=== PATIENT | male | born 1990 | race African-American/Black ===

== ENCOUNTER 2023-09-09 17:14 | Emergency (ER) | payer MEDICAID ==
[~2023-09-09] VITALS: Ht 172.7 cm; Wt 78.0 kg
[2023-09-09 17:19] VITALS: O2SAT 99
[2023-09-09] MEDS ORDERED: BACITRACIN ZINC OINT UDPKT TOP ONE (17:30)
[2023-09-09] MEDS ORDERED: TETANUS, DIPHTHERIA, PERTUSSIS VAC/PF 0.5ML (>10YR OLD) IM ONE (17:30)
[2023-09-09] MEDS ORDERED: LIDOCAINE HCL/EPINEPHRINE 1%-EPI 1:100,000 20 ML VIAL INFIL ONE (17:30)
[2023-09-09] MEDS ORDERED: ACETAMINOPHEN 325MG TABLET PO ONE (17:30)
[2023-09-09] MEDS ORDERED: LIDOCAINE HCL/PF 1% 10 MG/ML 5ML VIAL INFIL ONE (17:30)
[2023-09-09 17:54] VITALS: TEMP 98.1
[2023-09-09 17:57] LABS: BASOPHILS % 0.5 % (0.0-2.0); EOSINOPHILS % 0.5 % (0.0-5.0); HEMATOCRIT. 50.5 % (42.0-52.0); HEMOGLOBIN. 17.3 g/dL (14.0-18.0); LYMPHOCYTES % 11.1 % (20.0-50.0); MEAN CORPUSCULAR HGB CONC 34.3 g/dL (31.0-37.0); MEAN CORPUSCULAR VOLUME 93.3 fL (80.0-94.0); MEAN PLATELET VOLUME 7.6 fl (7.4-10.4); NEUTROPHILS % 80.9 % (40.0-76.0); PLATELET 252 x1000/uL (130-400); RED BLOOD CELL COUNT 5.42 mill/uL (4.7-6.1); RED CELL DISTRIBUTION WIDTH 13.4 % (11.6-14.6); WHITE BLOOD COUNT 8.7 x1000/uL (4.5-11.0)
[2023-09-09 18:15] LABS: ALANINE AMINOTRANSFERASE 14 IU/L (10-49); ALBUMIN 5.1 g/dL (3.2-4.8); ASPARTATE AMINOTRANSFERASE 21 IU/L (<34); BILIRUBIN TOTAL 0.5 mg/dL (0.1-1.0); CALCIUM 10.2 mg/dL (8.7-10.4); CARBON DIOXIDE 24 mEq/L (21-32); CHLORIDE 102 mEq/L (98-107); CREATININE 1.3 mg/dL (0.6-1.3); GLUCOSE 121 mg/dL (70-105); POTASSIUM 3.6 mEq/L (3.5-5.1); PROTEIN TOTAL 7.9 g/dL (6.0-8.3); SODIUM 136 mEq/L (136-145); UREA NITROGEN BLOOD 15 mg/dL (9-23)
[2023-09-09 18:34] LABS: INR 1.1; PROTHROMBIN TIME 11.6 sec (9.6-11.0)
[2023-09-09] MEDS ORDERED: ACET-2708 MT (19:57)
[2023-09-09 22:00] VITALS: BP 101/67; PULSE 74; RESP 20
== END 2023-09-09 22:30 | disposition home or self-care (01) ==
LOC: ER 17:14
DX: S01.81XA Laceration without foreign body of other part of head, initial encounter (principal); S01.112A Laceration without foreign body of left eyelid and periocular area, initial encounter; S02.2XXA Fracture of nasal bones, initial encounter for closed fracture; M54.2 Cervicalgia; Y08.89XA Assault by other specified means, initial encounter; Y93.89 Activity, other specified; Y92.89 Other specified places as the place of occurrence of the external cause; Y99.8 Other external cause status
CPT/HCPCS: 99285; 70450; 71045; 80053; 85025; 85610; 36415; 70486; 70491; 72125; 90715; 12013; 90471; J3490

== ENCOUNTER 2023-09-14 16:27 | Emergency (ER) | payer MEDICAID, OTHER ==
[~2023-09-14] VITALS: Ht 177.8 cm; Wt 75.0 kg
[~2023-09-14 16:27] MED LIST: ACET-2708 MT
[2023-09-14 16:32] VITALS: BP 117/90; PULSE 86; RESP 16; TEMP 98.2; O2SAT 99
== END 2023-09-14 19:06 | disposition home or self-care (01) ==
LOC: ER 16:27
DX: S01.112D Laceration without foreign body of left eyelid and periocular area, subsequent encounter (principal); X58.XXXD Exposure to other specified factors, subsequent encounter
CPT/HCPCS: 99281